=== PATIENT | male | born 1970 | race Caucasian/White ===

== ENCOUNTER 2022-03-24 13:13 | Outpatient (CLI) | payer BC, SELFPAY ==
[2022-03-24 22:10] LABS: Chloride* 104 mmol/L (96-114); Sodium* 141 mmol/L (135-149)
[2022-03-24 22:13] LABS: Blood Urea Nitrogen* 15 mg/dL (7-30); Carbon Dioxide* 29 mmol/L (20-32); Creatinine* 0.9 mg/dL (0.5-1.5); Estimated Glomerular Filt Rate 103 ml/min; Glucose* 113 mg/dL (60-115)
[2022-03-24 22:14] LABS: Calcium* 9.3 mg/dL (8.4-10.6); Uric Acid* 6.7 mg/dL (2.2-8.4)
[2022-03-24 22:38] LABS: PSA Screen* 0.38 ng/mL (0.10-4.00)
[2022-03-24 23:08] LABS: Potassium* 3.9 mmol/L (3.6-5.1)
== END 2022-03-24 13:14 | disposition home or self-care (01) ==
PROVIDERS: PCP Emergency Medicine; Visit Provider Emergency Medicine
DX: Z00.00 Encounter for general adult medical examination without abnormal findings (principal); L40.50 Arthropathic psoriasis, unspecified; M19.90 Unspecified osteoarthritis, unspecified site; Z12.5 Encounter for screening for malignant neoplasm of prostate
CPT/HCPCS: 80048; 84153; 84550

== ENCOUNTER 2022-04-22 07:27 | Outpatient (CLI) | payer BC, SELFPAY | END 2022-04-22 07:28 | disposition home or self-care (01) | PROVIDERS: PCP Emergency Medicine; Visit Provider Surgery | DX: Z12.11 Encounter for screening for malignant neoplasm of colon (principal); K63.5 Polyp of colon; K62.1 Rectal polyp; K57.30 Diverticulosis of large intestine without perforation or abscess without bleeding | CPT/HCPCS: 45385; 88305; 99153; J2250; J3010 ==

== ENCOUNTER 2022-04-27 14:51 | Outpatient (CLI) | payer BC, SELFPAY | END 2022-04-27 14:52 | disposition home or self-care (01) | LOC: RAD 14:51 | PROVIDERS: PCP Emergency Medicine; Visit Provider Emergency Medicine | DX: Z82.79 Family history of other congenital malformations, deformations and chromosomal abnormalities (principal) | CPT/HCPCS: 93306 ==